=== PATIENT | female | born 1985 | race Caucasian/White ===

== ENCOUNTER 2017-06-14 21:31 | Emergency (ER) | payer BC ==
[~2017-06-14] VITALS: Ht 157.5 cm; Wt 61.5 kg
[~2017-06-14 21:31] MED LIST: ALBUTEROL SULF8.5 GM IH; AMITIZA24 MICROGR PO; BUSPAR15 MG PO; BUSPAR5 MG PO; CIPRO500 MG PO; CLARITIN10 M3 PO; FLEXERIL10 MG PO; NOHOMEMEDS; OMEPRAZOLE40 M1 PO; PRENATA CHEWAB1 EACH PO; RELPAX40 MG PO; REQUIP0.5 MG PO; SPRINTEC1 EACH PO
[2017-06-14 22:39] LABS: ADD MIUA? NO; BILIRUBIN NEGATIVE; BLOOD NEGATIVE; COLOR YELLOW ((YELLOW)); GLUCOSE (STRIP) NEGATIVE; KETONES NEGATIVE; LEUKOCYTES NEGATIVE; NITRITE NEGATIVE; PROTEIN (STRIP) NEGATIVE; SPECIFIC GRAVITY 1.021 (1.000-1.030); UCUL ADDED? NO; UROBILINOGEN 0.2 MG/DL (0.2-1.0)
[2017-06-14 22:41] LABS: HEMATOCRIT 36.5 % (36.0-46.0); MCHC 36.2 G/DL (30.0-36.0); MCV 94.1 FL (83-99); PLATELET COUNT 254 K/uL (156-360); RBC DIS.WIDTH-CV 12.5 % (11.8-14.6); RBC DIS.WIDTH-SD 43.1 % (39-53); RED BLOOD COUNT 3.88 M/uL (3.80-5.20)
[2017-06-14 22:55] LABS: CHLORIDE 106 mEq/L (99-109); POTASSIUM 3.5 mEq/L (3.7-5.4); SODIUM 137 mEq/L (136-147)
[2017-06-14 22:57] LABS: GLUCOSE 91 mg/dL (70-99)
[2017-06-14 22:58] LABS: ANION GAP 7 MEQ/L (2-14)
[2017-06-14 22:59] LABS: TOTAL BILIRUBIN 0.8 mg/dL (0.0-1.0)
[2017-06-14 23:00] LABS: ALKALINE PHOSPHATASE 50 IU/L (3-129); GFR ESTIMATE (CALCULATED) > 59 mL/min/
[2017-06-14 23:02] LABS: UREA NITROGEN (BUN) 11 mg/dL (9-23)
[2017-06-14 23:04] LABS: LIPASE 33 U/L (1.0-51.0)
[2017-06-14 23:11] LABS: QUANTITATIVE HCG < 4.0 MIU/ML
[2017-06-15] MEDS ORDERED: BENTYL20 MG PO (01:13)
[2017-06-15] MEDS ORDERED: ZOFRAN8 MG PO (01:13)
[2017-06-15 01:53] VITALS: BP 108/59
== END 2017-06-15 02:26 | disposition home or self-care (01) ==
LOC: EME 21:31
DX: R10.84 Generalized abdominal pain (principal); R11.2 Nausea with vomiting, unspecified; R19.7 Diarrhea, unspecified
CPT/HCPCS: 80053; 81003; 83690; 84702; 85027; 99281; 99283

== ENCOUNTER 2018-05-15 14:02 | Outpatient (CLI) | payer BC ==
[~2018-05-15 14:02] MED LIST changes: +BENTYL20 MG PO; +ZOFRAN8 MG PO
[2018-05-15 14:15] VITALS: BP 129/72
[2018-05-15 15:06] LABS: APPEARANCE SL.HAZY ((CLEAR)); BILIRUBIN NEGATIVE; BLOOD NEGATIVE; COLOR YELLOW ((YELLOW)); GLUCOSE (STRIP) NEGATIVE; KETONES NEGATIVE; LEUKOCYTES NEGATIVE; NITRITE NEGATIVE; PROTEIN (STRIP) 30; SPECIFIC GRAVITY 1.017 (1.000-1.030); UROBILINOGEN 0.2 MG/DL (0.2-1.0)
[2018-05-15 15:20] LABS: BACTERIA RARE /HPF; EPITHELIAL CELLS 1+ /HPF; MUCUS TRACE /LPF; RED BLOOD CELLS 0-5 /HPF (0-5); UCUL ADDED? NO; WHITE BLOOD CELLS 0-5 /HPF (0-5)
[2018-05-15 15:51] VITALS: BP 122/83
== END 2018-05-15 17:40 | disposition home or self-care (01) ==
LOC: LDRP-OP 14:02 → 2WEST 14:03
PROVIDERS: Advanced Practice Midwife
DX: O26.893 Other specified pregnancy related conditions, third trimester (principal); O99.344 Other mental disorders complicating childbirth; Q23.1 Congenital insufficiency of aortic valve; F32.9 Major depressive disorder, single episode, unspecified; Z3A.28 28 weeks gestation of pregnancy
CPT/HCPCS: 59025; 81003; 83030; 86850; 86900; 86901; G0378; J2790; J7120

== ENCOUNTER 2018-06-18 04:11 | Outpatient (CLI) | payer BC ==
[~2018-06-18] VITALS: Ht 160 cm; Wt 70.3 kg
[2018-06-18 04:29] VITALS: BP 118/78
[2018-06-18] MEDS ORDERED: PANTOPRAZOLE SO40 MG PO (05:06)
[2018-06-18] MEDS ORDERED: MULTI-VITAMIN1 EAC4 PO (05:07)
[2018-06-18] MEDS ORDERED: COLACE100 MG PO (05:08)
[2018-06-18] MEDS ORDERED: ZOLOFT25 MG PO (05:08)
[2018-06-18] MEDS ORDERED: ZANTAC150 MG PO (05:08)
[2018-06-18] MEDS ORDERED: ACTIGALL300 MG PO (05:10)
[2018-06-18 05:27] VITALS: BP 112/75
== END 2018-06-18 06:08 | disposition home or self-care (01) ==
LOC: LDRP-OP 04:11 → 2WEST 04:12 → LDRP-OP 09-05 17:53
DX: O60.03 Preterm labor without delivery, third trimester (principal); Z3A.33 33 weeks gestation of pregnancy
CPT/HCPCS: 59025; G0378